=== PATIENT | male | born 2000 | race Caucasian/White ===

== ENCOUNTER 2018-07-18 12:52 | Emergency (ER) | payer OTHER ==
[~2018-07-18] VITALS: Ht 182.9 cm; Wt 77.1 kg
[2018-07-18] MEDS ORDERED: CEFTRIAXONE SOD 1 GM VIAL IV ONE (13:15)
[2018-07-18] MEDS ORDERED: AZITHROMYCIN 250 MG TAB PO ONE (13:15)
[2018-07-18] MEDS ORDERED: CEFTRIAXONE SOD 1 GM/NS 50 ML 50 ML IV ONE (13:30)
[2018-07-18 13:53] LABS: BILIRUBIN,URINE NEGATIVE (NEGATIVE); CLARITY,URINE CLEAR (CLEAR); COLOR,URINE YELLOW (YELLOW); KETONES,URINE NEGATIVE (NEGATIVE); LEUKOCYTE ESTERASE ,URINE NEGATIVE (NEGATIVE); NITRITE,URINE NEGATIVE (NEGATIVE); PROTEIN,URINE DIPSTICK NEGATIVE (NEGATIVE); URINE UROBILINOGEN 0.2 mg/dL (0.2 - 1)
[2018-07-18] MEDS ORDERED: LIDOCAINE HCL 1% LOCAL INJ 20 ML VIAL INJ NR (14:00)
[2018-07-18] MEDS ORDERED: CEFTRIAXONE SOD 1 GM VIAL IM NR (14:00)
[2018-07-18 14:01] LABS: BACTERIA,URINE RARE /HPF; EPITHELIAL CELLS,URINE RARE /LPF
[2018-07-18 15:37] VITALS: BP 128/69
== END 2018-07-18 15:38 | disposition home or self-care (01) ==
LOC: ER 12:52
DX: A54.01 Gonococcal cystitis and urethritis, unspecified (principal); Z20.2 Contact with and (suspected) exposure to infections with a predominantly sexual mode of transmission
CPT/HCPCS: 81001; 87086; 99283; J0696; J2001